=== PATIENT | female | born 1955 ===

== ENCOUNTER 2018-03-11 15:16 | Inpatient (IN) | payer OTHER ==
[~2018-03-11] VITALS: Ht 157.5 cm; Wt 63.5 kg
[2018-03-18] MEDS ORDERED: LIPITOR20 MG PO (11:38)
== END 2018-03-27 12:36 | disposition home or self-care (01) | DRG 331 ==
LOC: SURH 03-23 09:58 → O/R 03-23 09:58 → SURG 03-23 10:30 → SURH 03-24 12:16
PROVIDERS: Colon & Rectal Surgery
PROC: 0DJD8ZZ Inspection of Lower Intestinal Tract, Via Natural or Artificial Opening Endoscopic (ICD-10-PCS; 2018-03-23)
PROC: 0DTN4ZZ Resection of Sigmoid Colon, Percutaneous Endoscopic Approach (ICD-10-PCS; principal; 2018-03-23 16:00)
DX: K57.32 Diverticulitis of large intestine without perforation or abscess without bleeding (principal); E78.00 Pure hypercholesterolemia, unspecified

== ENCOUNTER 2019-05-06 07:18 | Day surgery (SDC) | payer OTHER ==
[~2019-05-06 07:18] MED LIST: LIPITOR20 MG PO
== END 2019-05-06 13:55 | disposition home or self-care (01) ==
LOC: AMB-ENDOS 07:18
DX: K57.32 Diverticulitis of large intestine without perforation or abscess without bleeding (principal); K64.1 Second degree hemorrhoids